=== PATIENT | female | born 1960 | race Caucasian/White ===

== ENCOUNTER 2021-09-02 00:24 | Day surgery (SDC) | payer OTHER, SELFPAY ==
[2021-08-15 13:55] VITALS: BMI 29.2
[2021-09-02 09:14] VITALS: BP 145/73; PULSE 72; RESP 16; TEMP 36.6; O2SAT 98; BMI 31.5
--- NOTE | 2021-09-02 09:24 | P.PNAN_ITS ---
Anes - Initial Pre Proc Eval Procedure: Operation Date: 09/02/21 10:00 Proposed Procedures p Screening Colonoscopy - Federico Ravi MD Date/Time: 09/02/21 09:24 Surgeon: Federico Ravi MD Pre Op Diagnosis: neoplasm screening Patient Data Age: 60 Gender: F Height: 1.52 m Weight: 73.2 kg Last Vital Signs Temp 36.6 C 09/02/21 09:14 Pulse 72 09/02/21 09:14 Resp 16 09/02/21 09:14 BP 145/73 H 09/02/21 09:14 Pulse Ox 98 09/02/21 09:14 Allergies Allergy/AdvReac Type Severity Reaction Status Date / Time codeine Allergy Mild Unknown Verified 09/02/21 09:13 Home Medications Medication Instructions Recorded Confirmed Type oxybutynin chloride 5 mg tablet 5 mg PO DAILY #30 tablet 07/18/21 09/02/21 Rx Patient hx anesthesia problems: none Family hx anesthesia problems: none Results Review: All pre-operative results and documents have been reviewed as part of the pre-operative evaluation. [facility] Past Medical History Medical History Encounter for routine gynecological examination Human papilloma virus Surgical History Surgical History H/O bilateral breast reduction surgery History of back surgery Hx of tonsillectomy Family History Family History Grandparent Diabetes mellitus Cerebrovascular accident Father Cerebrovascular accident Social History Social History Smoking status: Never smoker Alcohol intake: current Drinks per week: 3 Substance use: never Living arrangements: with friend(s) Spiritual care concerns: No Anes - Eval Final PreProcedure Day of Procedure 09/02/21 09:24 Patient weight: obese Heart: regular rate and rhythm Lungs: clear to auscultation Airway: Mallampati scale class II Neurological: alert and oriented Last oral intake: >/= 8 hours ASA classification: II Emergent: no Anesthetic plan: proceed Anesthesia type and monitoring: general GIVS and standard monitoring Results Review: All pre-operative results and documents have been reviewed as part of the pre-operative evaluation. Informed Consent: The patient's anesthetic plan and its attendant risks and benefits were discussed with the patient/family/POA. Questions were solicited and answers provided to the satisfaction of the patient/family/POA.
--- NOTE | 2021-09-02 09:28 | PM.HPGS ---
History of Present Illness History of Present Illness Consent: Risks, benefits, and alternatives have been discussed and questions answered. Patient agrees to proceed with procedure. Chief complaint: neoplasm screening Narrative: Danica Schmidt is a 60 year old female here for screening colonoscopy, last one 10 years ago Review of Systems Constitutional: Constitutional: Denies headache(s) and Denies weakness Eyes: Eyes: Denies blurry vision ENT: Reports Normal hearing present, Denies headache(s) and Denies neck pain Cardiovascular: Cardiovascular: Denies chest pain and Denies dyspnea Respiratory: Respiratory: Denies dyspnea Gastrointestinal: Gastrointestinal: Reports no additional gastrointestinal complaints Genitourinary: Genitourinary: Denies dysuria Musculoskeletal: Musculoskeletal: Denies neck pain Integumentary/Breasts: Skin/Breast: Denies dry skin Neurologic: Reports Normal hearing present, Denies headache(s) and Denies weakness Psychiatric: Psychiatric: Denies anxiety Endocrine: Endocrine: Denies change in body appearance Hematologic/Lymphatic: Hematologic/Lymphatic: Denies easy bleeding Allergic/Immunologic: Allergic/Immunologic: Denies urticaria PMFSH Past Medical History Medical History (Updated 09/02/21 @ 09:29 by Federico Ravi MD) Colon cancer screening Encounter for routine gynecological examination Human papilloma virus Surgical History Surgical History H/O bilateral breast reduction surgery History of back surgery Hx of tonsillectomy Family History Family History Grandparent Diabetes mellitus Cerebrovascular accident Father Cerebrovascular accident Social History Social History Smoking status: Never smoker Alcohol intake: current Drinks per week: 3 Substance use: never Living arrangements: with friend(s) Spiritual care concerns: No Meds Home Medications and Allergies Home Medications Medication Instructions Recorded Confirmed Type oxybutynin chloride 5 mg tablet 5 mg PO DAILY #30 tablet 07/18/21 09/02/21 Rx Allergies Allergy/AdvReac Type Severity Reaction Status Date / Time codeine Allergy Mild Unknown Verified 09/02/21 09:13 Vital Signs Vital Signs - 24 hr 09/02/21 09:14 Temperature 97.8 F Pulse Rate 72 Respiratory Rate 16 Blood Pressure 145/73 H Pulse Oximetry 98 Exam Const: General: comfortable and no acute distress HENMT: General nose exam: Normal nares present Eyes: General: appearance normal, both eyes and all related structures Neck: Neck: no JVD Resp: Auscultation: clear to auscultation bilaterally Cardio: Rate: regular rate Rhythm: regular rhythm GI: Inspection: non-distended GI Palp: Yes Soft to palpation Skin: General skin exam: normal color Neuro: General: gait normal Speech: normal speech Extrem: General: normal to inspection Psych: Mental Status: mental status grossly normal Assessment and Plan Assessment and plan (1) Colon cancer screening: Code(s): Z12.11 - Encounter for screening for malignant neoplasm of colon Status: Acute Assessment and Plan: colonoscopy
[2021-09-02] MEDS: LACTATED RINGERS 1,000 ML 150 ML IV CONT (09:31)
[2021-09-02 09:51] VITALS: BP 107/65; PULSE 60; RESP 16; O2SAT 99
[2021-09-02 10:01] VITALS: BP 122/72; PULSE 56; RESP 18; O2SAT 99
[2021-09-02 10:11] VITALS: BP 138/78; PULSE 53; RESP 14; O2SAT 99
== END 2021-09-02 10:18 | disposition home or self-care (01) ==
PROVIDERS: PCP Internal Medicine; Visit Provider Internal Medicine Gastroenterology
PROC: 0DJD8ZZ Inspection of Lower Intestinal Tract, Via Natural or Artificial Opening Endoscopic (ICD-10-PCS; CPT 45378; principal; 2021-09-02 10:00)
DX: Z12.11 Encounter for screening for malignant neoplasm of colon (principal); D12.4 Benign neoplasm of descending colon; K57.30 Diverticulosis of large intestine without perforation or abscess without bleeding; K64.8 Other hemorrhoids; E66.9 Obesity, unspecified; Z68.31 Body mass index [BMI] 31.0-31.9, adult
CPT/HCPCS: 45385; 88305; J2001; J2704; J7120